=== PATIENT | female | born 2005 | race Two or more races ===

== ENCOUNTER 2024-12-03 05:43 | Emergency (ER) | payer MEDICAID, SELFPAY ==
[2024-12-03 05:44] VITALS: BMI 13.9
[2024-12-03 05:49] VITALS: BP 106/74; PULSE 86; RESP 18; TEMP 36.7; O2SAT 97
--- NOTE | 2024-12-03 06:18 | EDNOTE_ITS ---
ED Fever RME/HPI General Chief Complaint: Fever Stated Complaint: FEVER AND CRAMPING LEFT ARM AFTER VACCINES Time Seen by Provider: 12/03/24 06:11 Arrival date/time: 12/03/24 05:43 19-year-old female presents to the emergency department today stating that she got 3 vaccinations yesterday tetanus, HPV, meningococcal vaccine patient reports pain in her left arm at the site of injection. Patient reports that she had a fever last night. Patient reports no headache dizziness or weakness no neck pain no chest pain or shortness of breath Limitations: no limitations Related Data Home Medications ?Medication ?Instructions ?Recorded ?Confirmed albuterol sulfate 90 mcg/actuation 2 puff inhalation Q 6H 10/05/17 10/05/17 aerosol inhaler Previous Rx's ?Medication ?Instructions ?Recorded lidocaine HCl 2 % mucosal solution See Rx Instructions .Route 10/05/17 (Lidocaine Viscous) .COMPLEX #100 mL nitrofurantoin macrocrystal 100 mg 100 mg PO BID #14 c aps 10/31/22 capsule acetaminophen 325 mg capsule 650 mg (2 x 325 mg) PO Q8 HR PRN 12/03/24 fever or pain #30 caps ibuprofen 400 mg tablet 400 mg PO Q8H PRN fever or p ain 12/03/24 #30 tabs Allergies Allergy/AdvReac Type Severity Reaction Status Date / Time No Known Allergies Allergy Verified 12/03/24 05:44 Review of Systems Review of Systems Systems Reviewed: All systems reviewed, normal except as documented Constitutional Constitutional: Reports system reviewed and no additional complaints, except as documented, Reports body ache(s), Reports fever(s) and Denies headache(s) Eyes Eyes: Reports system reviewed and no additional complaints, except as documented and Denies blurry vision ENT Ears, Nose, Mouth, and Throat: Reports system reviewed and no additional complaints, except as documented, Denies headache(s), Denies nasal congestion and Denies nasal discharge Cardiovascular Cardiovascular: Reports system reviewed and no additional complaints, except as documented, Denies chest pain and Denies dyspnea Respiratory Respiratory: Reports system reviewed and no additional complaints, except as documented, Denies chest congestion, Denies cough and Denies dyspnea Gastrointestinal Gastrointestinal: Reports system reviewed and no additional complaints, except as documented and Denies abdominal pain Musculoskeletal Musculoskeletal: Reports system reviewed and no additional complaints, except as documented and Reports other (Left arm pain) Integumentary/Breasts Skin/Breast: Reports system reviewed and no additional complaints, except as documented and Denies rash Neurologic Neurologic: Reports system reviewed and no additional complaints, except as documented, Reports as per HPI and Denies headache(s) Past Medical History Past Medical History CARDIAC: Negative Congestive Heart Failure RESPIRATORY: Positive Asthma; Negative Chronic Obstructive Pulmonary Disease (COPD) GENITOURINARY: Negative Renal Disease ENDOCRINE: Negative Diabetes Mellitus Type 1 or Diabetes Mellitus Type 2 Social History SMOKING STATUS: Never smoker Physical Exam General Limitations: no limitations General appearance: alert and in no apparent distress Head Head exam: atraumatic, normocephalic and normal inspection Eye Eye exam: Present normal appearance, PERRL and EOMI; Absent scleral icterus, conjunctival injection, nystagmus or miosis ENT ENT exam: Present normal exam, normal oropharynx and mucous membranes moist Neck Neck exam: Present normal inspection, full ROM, trachea midline and other (Full range of motion the neck); Absent tenderness, meningismus, lymphadenopathy or thyromegaly Chest Chest inspection: Present normal inspection and symmetric chest wall rise Respiratory Respiratory exam: Present normal lung sounds bilaterally Cardiovascular Cardiovascular exam: Present regular rate, normal rhythm and normal heart sounds Abdominal Exam Abdominal exam: Present soft and normal bowel sounds Extremities Exam Extremities exam: Present normal inspection, full ROM and tenderness (Left arm pain) Back Exam Back exam: Present normal inspection and full ROM Neurological Exam Neurological exam: Present alert, oriented X3, CN II-XII intact, normal gait, reflexes normal and other (Normal neurological exam); Absent motor sensory deficit Psychiatric Psychiatric exam: Present normal affect and normal mood Skin Skin exam: Present warm, dry, intact and normal color ED Exam General Limitations: Present no limitations General appearance: Present alert and in no apparent distress Head Head exam: Present atraumatic, normocephalic and normal inspection Eye Eye exam: Present normal appearance, PERRL and EOMI; Absent scleral icterus, conjunctival injection, nystagmus or miosis ENT ENT exam: Present normal exam, normal oropharynx and mucous membranes moist Neck Neck exam: Present normal inspection, full ROM, trachea midline and other (Full range of motion the neck); Absent tenderness, meningismus, lymphadenopathy or thyromegaly Chest Chest inspection: Present normal inspection and symmetric chest wall rise Respiratory Respiratory exam: Present normal lung sounds bilaterally Cardiovascular Cardiovascular exam: Present regular rate, normal rhythm and normal heart sounds Abdominal Exam Abdominal exam: Present soft and normal bowel sounds Extremities Exam Extremities exam: Present normal inspection, full ROM and tenderness (Left arm pain) Back Exam Back exam: Present normal inspection and full ROM Neurological Exam Neurological exam: Present alert, oriented X3, CN II-XII intact, normal gait, reflexes normal and other (Normal neurological exam); Absent motor sensory deficit Psychiatric Psychiatric exam: Present normal affect and normal mood Skin Skin exam: Present warm, dry, intact and normal color Course Quality Measures none Vital Signs Vital signs: Vital Signs Temperature 98.1 F 12/03/24 05:49 Pulse Rate 86 12/03/24 05:49 Respiratory Rate 18 12/03/24 05:49 Blood Pressure 106/74 12/03/24 05:49 Pulse Oximetry (%) 97 12/03/24 05:49 Oxygen Delivery Method Room Air 12/03/24 05:49 O2 saturation 97% room air within normal limits Fever MDM Narrative MDM Narrative:: 19-year-old female presents to the emergency department today stating that she got 3 vaccinations yesterday tetanus, HPV, meningococcal vaccine patient reports pain in her left arm at the site of injection. Patient reports that she had a fever last night. Patient reports no headache dizziness or weakness no neck pain no chest pain or shortness of breath Clinically patient well-appearing patient does not appear ill or toxic patient has tenderness of the left shoulder/deltoid region but is able to move her arm albeit with pain Patient has full range of motion of her neck afebrile nontoxic in appearance Most likely this is a reaction to the vaccination explained to the patient if she develops any worsening symptoms she needs to return for reevaluation patient states understanding Patient discharged home in no distress to follow-up with primary care doctor in the next 24 to 48 hours and for any worsening symptoms to return to the ER immediately Patient data External records reviewed:: [facility] previous records Clinical information provided by:: patient Social determinants that could affect healthcare access:: none Patient has the following chronic illnesses:: None How is presenting disease/condition affected by chronic disease/condition?: no chronic disease Evaluation data The following diagnostics were reviewed and interpreted by me:: other (specify) Lab and/or radiology exams considered but not ordered:: Considered not ordered Interpretation Summary: N/A Medications / Prescriptions Medications or Prescriptions considered but not ordered:: Given Medication administrations:: Given Consultations Consultation(s) initiated? (list below): No Diagnosis Fever Differential Diagnosis: fever of unknown origin and other Most likely diagnosis given after review of the tests above:: Vaccine reaction Admission Indicated Admission indicated?: not indicated Admission Request Was there a request for admission?: No Disposition Plan Disposition Plan: Discharge Discharge Attestation Discharge Attestation: The patient and all family members were given an opportunity to ask questions and understood the discharge instructions. Discharge instructions specifically effects, indications for sooner follow up or return to the emergency department, and the expected course of current diagnosis. Patient condition: Stable Discharge Plan Plan Patient Disposition: HOME (Self Care) Disposition Comment: Stable Prescriptions/Referrals Prescriptions/Med Rec: New acetaminophen 325 mg capsule 650 mg PO Q8HR PRN (Reason: fever or pain) Qty: 30 0RF ibuprofen 400 mg tablet 400 mg PO Q8H PRN (Reason: fever or pain) Qty: 30 0RF No Action albuterol sulfate 90 mcg/actuation Hfa Aerosol Inhaler 2 puff INHALATION Q6H lidocaine HCl [Lidocaine Viscous] 2 % solution See Rx Instructions .ROUTE .COMPLEX Qty: 100 0RF Rx Instructions: 1 mL by mouth 10 minutes before eating 3 times daily as needed nitrofurantoin macrocrystal 100 mg capsule 100 mg PO BID Qty: 14 0RF Rx Instructions: must administer with a meal/food Problem List Clinical Impression: Vaccine reaction, Fever Patient/Caregiver Discharge Instructions Education Materials: ED Drug Reaction, Other Additional Instructions: Please follow up with your primary care doctor in the next 24-48hrs for any worsening symptoms return here immediately Print Language: Wallisian Stand Alone Forms: Pia Award Info., Patient Portal Info Letter PA/ZULY Supervising Physician BRAVO/ZULY Supervising Physician: Dr Noland
== END 2024-12-03 06:38 | disposition home or self-care (01) ==
LOC: SERX 06:28
PROVIDERS: Emergency Provider Emergency Medicine; PCP Physician Assistant
DX: R50.83 Postvaccination fever (principal); R25.2 Cramp and spasm; T50.A95A Adverse effect of other bacterial vaccines, initial encounter; T50.B95A Adverse effect of other viral vaccines, initial encounter
CPT/HCPCS: 99281

== ENCOUNTER 2025-06-13 12:34 | Emergency (ER) | payer MEDICAID, SELFPAY ==
[2025-06-13 13:05] VITALS: BP 113/75; PULSE 68; RESP 16; TEMP 36.7; O2SAT 98; BMI 20.9
--- NOTE | 2025-06-13 13:16 | XR_ITS ---
Examination: Complete OB ultrasound, less than 14 weeks, transabdominal Date and time of exam: June 13, 2025, 1322 hours INDICATIONS: Vaginal bleeding and pelvic pain beginning 2 days ago. Technique: Obstetrical ultrasound images less than 14 weeks performed via transabdominal imaging Findings: A normal shaped single intrauterine gestation is present in the uterus. Uterus 7.4 cm CRL 0.4 cm corresponds to 6 weeks 1 day gestational age Cardiac motion 141 bpm Ultrasonographic survey of visible and placental structures unremarkable. Amniotic fluid volume appears appropriate for this estimated gestational age. Right ovary 2.5 cm arterial flow. Left ovary 3.7 cm arterial flow IMPRESSION: Viable intrauterine gestation 6 weeks 1 day
--- NOTE | 2025-06-13 13:18 | EDNOTE_ITS ---
ED OB Contraction Preg RMI/HPI General Chief complaint: OB/Uterine Contractions Stated complaint: VOMITING, DIZZY, R) ABD CRAMPING, PREG 6WKS Time Seen by Provider: 06/13/25 12:59 Source: patient Arrival date/time: 06/13/25 12:34 20-year-old female with no known medical history presents to the emergency room with a chief complaint of right abdominal cramping, vomiting, dizziness x 2 days. Patient is currently 6 weeks . She is a G1, P0. Patient denies any vaginal bleeding. Mode of arrival: ambulatory Limitations: no limitations Related Data Home Medications ?Medication ?Instructions ?Recorded ?Confirmed albuterol sulfate 90 mcg/actuation 2 puff inhalation Q 6H 10/05/17 10/05/17 aerosol inhaler Previous Rx's ?Medication ?Instructions ?Recorded lidocaine HCl 2 % mucosal solution See Rx Instructions .Route 10/05/17 (Lidocaine Viscous) .COMPLEX #100 mL nitrofurantoin macrocrystal 100 mg 100 mg PO BID #14 c aps 10/31/22 capsule acetaminophen 325 mg capsule 650 mg (2 x 325 mg) PO Q8 HR PRN 12/03/24 fever or pain #30 caps ibuprofen 400 mg tablet 400 mg PO Q8H PRN fever or p ain 12/03/24 #30 tabs ondansetron 4 mg disintegrating 4 mg PO Q8H PRN nausea and 06/13/25 tablet vomiting #14 tabs Allergies Allergy/AdvReac Type Severity Reaction Status Date / Time No Known Allergies Allergy Verified 06/13/25 12:37 Review of Systems Review of Systems Systems Reviewed: All systems reviewed, normal except as documented Constitutional Constitutional: Reports system reviewed and no additional complaints, except as documented, Denies fatigue, Denies fever(s), Denies headache(s) and Denies weakness Eyes Eyes: Reports system reviewed and no additional complaints, except as d ocumented, Denies blurry vision and Denies change in vision ENT Ears, Nose, Mouth, and Throat: Reports system reviewed and no additional complaints, except as documented, Denies otalgia, Denies headache(s), Denies nasal congestion, Denies throat swelling and Denies vertigo Cardiovascular Cardiovascular: Reports system reviewed and no additional complaints, except as documented, Denies chest pain, Denies dyspnea and Denies dyspnea on exertion Respiratory Respiratory: Reports system reviewed and no additional complaints, except as documented, Denies chest congestion, Denies cough, Denies dyspnea, Denies dyspnea on exertion and Denies wheezing Gastrointestinal Gastrointestinal: Reports system reviewed and no additional complaints, except as documented, Denies abdominal pain, Denies cramping, Denies nausea and Denies vomiting Genitourinary Genitourinary: Reports system reviewed and no additional complaints, except as documented, Reports abnormal vaginal bleeding and Reports pelvic pain Musculoskeletal Musculoskeletal: Reports system reviewed and no additional complaints, except as documented and Denies back pain Integumentary/Breasts Skin/Breast: Reports system reviewed and no additional complaints, except as documented and Denies wounds Neurologic Neurologic: Reports system reviewed and no additional complaints, except as documented, Denies confusion, Denies headache(s), Denies lack of coordination, Denies vertigo and Denies weakness Psychiatric Psychiatric: Reports system reviewed and no additional complaints, except as documented, Denies anxiety, Denies confusion, Denies depression, Denies paranoia, Denies suicidal ideation and Denies tactile hallucinations Endocrine Endocrine: Reports system reviewed and no additional complaints, except as documented and Denies fatigue Hematologic/Lymphatic Hematologic/Lymphatic: Reports system reviewed and no additional complaints, except as documented and Denies lymphadenopathy Allergic/Immunologic Allergic/Immunologic: Reports system reviewed and no additional complaints, except as documented, Denies throat swelling, Denies urticaria and Denies wheezing Past Medical History Past Medical History CARDIAC: Negative Congestive Heart Failure RESPIRATORY: Positive Asthma; Negative Chronic Obstructive Pulmonary Disease (COPD) GENITOURINARY: Negative Renal Disease ENDOCRINE: Negative Diabetes Mellitus Type 1 or Diabetes Mellitus Type 2 Social History SMOKING STATUS: Never smoker ED Exam General Limitations: Present no limitations General appearance: Present alert and in no apparent distress Head Head exam: Present atraumatic Eye Eye exam: Present normal appearance, PERRL and EOMI ENT ENT exam: Present normal exam, normal oropharynx and mucous membranes moist Neck Neck exam: Present normal inspection, full ROM and trachea midline Chest Chest inspection: Present normal inspection and symmetric chest wall rise Respiratory Respiratory exam: Present normal lung sounds bilaterally Cardiovascular Cardiovascular exam: Present regular rate, normal rhythm and normal heart sounds Abdominal Exam Abdominal exam: Present soft and normal bowel sounds Extremities Exam Extremities exam: Present normal inspection and full ROM Back Exam Back exam: Present normal inspection and full ROM Neurological Exam Neurological exam: Present alert, oriented X3 and CN II-XII intact Psychiatric Psychiatric exam: Present normal affect and normal mood Skin Skin exam: Present warm, dry, intact and normal color Course Quality Measures none Orders Category Date Time Status US OB <= 14 weeks fetus Stat Exams 06/13/25 13:16 Completed ABO/RH Type Stat Lab 06/13/25 14:20 Completed Beta HCG,Quantitative Stat Lab 06/13/25 14:20 Completed CBC Stat Lab 06/13/25 14:20 Completed CMP [Comprehensive Metabolic Panel] Stat Lab 06/13/25 14:20 Completed UA [Urinalysis] Stat Lab 06/13/25 14:05 Completed Ondansetron Odt [Zofran Odt] Med 06/13/25 13:19 Discontinued 4 mg PO X1 ONE Vital Signs Vital signs: Vital Signs Temperature 98.1 F 06/13/25 13:05 Pulse Rate 68 06/13/25 13:05 Respiratory Rate 16 06/13/25 13:05 Blood Pressure 113/75 06/13/25 13:05 Pulse Oximetry (%) 98 06/13/25 13:05 Oxygen Delivery Method Room Air 06/13/25 13:05 OB/Uterine Contractions MDM Narrative MDM Narrative:: 20-year-old female with no known medical history presents to the emergency room with a chief complaint of right abdominal cramping, vomiting, dizziness x 2 days. Patient is currently 6 weeks . She is a G1, P0. Patient denies any vaginal bleeding. Patient is hemodynamically stable and in no apparent distress Physical examination shows a soft nontender abdomen. Ultrasound OB shows a viable intrauterine gestation at 6 weeks and 1 day. heart tones are 141 bpm. hCG levels are 126,111. There is arterial flow to the right and left ovary. Patient was discharged and educated to follow-up with primary care provider in the next 24 to 48 hours and return to the emergency room for any evidence of worsening signs or symptoms Patient data External records reviewed:: [facility] previous records Clinical information provided by:: patient Social determinants that could affect healthcare access:: none Patient has the following chronic illnesses:: No chronic illness How is presenting disease/condition affected by chronic disease/condition?: no chronic disease Evaluation data The following diagnostics were reviewed and interpreted by me:: lab results and radiology exam(s) Lab and/or radiology exams considered but not ordered:: Labs and radiology exams considered and ordered Interpretation Summary: Ultrasound OB-Findings: A normal shaped single intrauterine gestation is present in the uterus. Uterus 7.4 cm CRL 0.4 cm corresponds to 6 weeks 1 day gestational age Cardiac motion 141 bpm Ultrasonographic survey of visible and placental structures unremarkable. Amniotic fluid volume appears appropriate for this estimated gestational age. Right ovary 2.5 cm arterial flow. Left ovary 3.7 cm arterial flow IMPRESSION: Viable intrauterine gestation 6 weeks 1 day Medications / Prescriptions Medications or Prescriptions considered but not ordered:: No medication given Medication administrations:: Medication Administration History Discontinued Medications Ondansetron HCl (Ondansetron Odt 4 Mg Tabrap) 4 mg PO X1 ONE; Protocol Stop: 06/13/25 13:20 Last Admin: 06/13/25 13:59 Dose: 4 mg Documented By: OA No medication given Consultations Consultation(s) initiated? (list below): No Diagnosis OB Contractions Differential Diagnosis: other (Ectopic /UTI/threatened /ovarian torsion/abdominal cramping while ) Most likely diagnosis given after review of the tests above:: Abdominal cramping while Admission Indicated Admission indicated?: not indicated Explain why admission is indicated or not indicated:: N/A Admission Request Was there a request for admission?: No Disposition Plan Disposition Plan: Discharge Discharge Attestation Discharge Attestation: The patient and all family members were given an opportunity to ask questions and understood the discharge instructions. Discharge instructions specifically effects, indications for sooner follow up or return to the emergency department, and the expected course of current diagnosis. Patient condition: Stable Discharge Plan Plan Patient Disposition: HOME (Self Care) Discharge Disposition comment: Stable Prescriptions/Referrals Prescriptions/Med Rec: New ondansetron 4 mg tablet,disintegrating 4 mg PO Q8H PRN (Reason: nausea and vomiting) Qty: 14 0RF No Action albuterol sulfate 90 mcg/actuation Hfa Aerosol Inhaler 2 puff INHALATION Q6H lidocaine HCl [Lidocaine Viscous] 2 % solution See Rx Instructions .ROUTE .COMPLEX Qty: 100 0RF Rx Instructions: 1 mL by mouth 10 minutes before eating 3 times daily as needed nitrofurantoin macrocrystal 100 mg capsule 100 mg PO BID Qty: 14 0RF Rx Instructions: must administer with a meal/food acetaminophen 325 mg capsule 650 mg PO Q8HR PRN (Reason: fever or pain) Qty: 30 0RF ibuprofen 400 mg tablet 400 mg PO Q8H PRN (Reason: fever or pain) Qty: 30 0RF Referrals: Nile Bañuelos MD [Primary Care Provider, Family Practice] - In 1 week Problem List Clinical Impression: Abdominal cramping affecting Patient/Caregiver Discharge Instructions Education Materials: Abdominal Pain Additional Instructions: Please follow-up with your P[facility]IC[facility] SPECIALIST in the next 24 to 48 hours Your ultrasound shows a in good standing at 6 weeks and 1 day. heart tones are 141 bpm. hCG levels are 126,111 For any evidence of worsening signs or symptoms return to emergency room immediately Print Language: Mauritian Stand Alone Forms: Pia Award Info., Work/School Release, Patient Portal Info Letter
[2025-06-13] MEDS: ONDANSETRON ODT 4 MG TABRAP PO (13:59)
[2025-06-13 14:29] LABS: Collection Type, Urine Clean Catch
--- NOTE | 2025-06-13 14:33 | PC.NURSE ---
PT TRYING TO GIVE URINE SPECIMEN WHEN ASKED.
[2025-06-13 14:37] LABS: Basophils # (Auto) 0.1 Thou/mm3 (0.0-0.2); Basophils % (Auto) 0 % (0-2.5); Eosinophils # (Auto) 0.1 Thou/mm3 (0.0-0.5); Eosinophils % (Auto) 1 % (0-10); Hematocrit 38.5 % (36.0-46.0); Hemoglobin 13.4 g/dL (12.0-16.0); Immature Granulocytes Auto 0.06 Thou/mm3 (0.00-0.00); Lymphocytes # (Auto) 1.9 Thou/mm3 (1.0-4.8); Lymphocytes % (Auto) 14 % (10-50); Mean Corpuscular HGB Conc 34.8 g/dl (31.0-37.0); Mean Corpuscular Hemoglobin 29.2 pg (25.0-35.0); Mean Corpuscular Volume 84 fL (80-100); Monocytes # (Auto) 0.8 Thou/mm3 (0.0-0.8); Monocytes % (Auto) 6 % (0-12); Neutrophils # (Auto) 10.9 Thou/mm3 (1.8-7.7); Neutrophils % (Auto) 79 % (37-80); Nucleated Red Blood Cell # 0.00 Thou/mm3 (0.00-0.00); Nucleated Red Blood Cell % 0 /100 WBC (0); Platelet Count 250 Thou/mm3 (140-440); RDW Standard Deviation 41.1 fL (36.4-46.3); Red Blood Count 4.59 Miln/mm3 (4.00-5.20); White Blood Count 13.8 Thou/mm3 (3.6-11.0)
[2025-06-13 14:56] LABS: Bacteria,Urine Rare; Bilirubin,Urine Negative (Negative); Blood,Urine Negative (Negative); Clarity,Urine Clear (Clear/Hazy); Color,Urine Yellow (Lt Yel-Yel); Glucose, Urine Negative (Negative); Ketones,Urine 4+ (Negative); Leukocyte Esterase,Urine Negative (Negative); Nitrite,Urine Negative (Negative); PH,Urine 6.5 (5.0-7.0); Protein,Urine Trace (Neg - Trace); RBC,Urine 3 /hpf (0-3); Specific Gravity,Urine 1.028 (1.001-1.035); Squamous Epithelial Cell,Urine 3 /hpf (0-5); Urobilinogen,Urine Negative mg/dL (0.0-1.0); WBC,Urine 1 /hpf (0-5)
[2025-06-13 14:57] LABS: Alanine Aminotransferase 11 U/L (10-49); Albumin, Serum 5.0 gm/dL (3.5-5.0); Albumin/Globulin Ratio 2.3 (1.2-2.2); Alkaline Phosphatase 44 U/L (46-116); Anion Gap 11 (7-16); Aspartate Amino Transferase 21 U/L (0-34); BUN/Creatinine Ratio 9 Ratio (12-20); Bilirubin,Total 0.7 mg/dL (0.3-1.2); Blood Urea Nitrogen 6 mg/dL (9-23); Calcium 9.4 mg/dL (8.3-10.6); Calcium (Corrected) 9.4 mg/dL (8.5-10.1); Carbon Dioxide 23.1 mMol/L (20.0-31.0); Chloride 103 mMol/L (98-107); Creatinine (Component) 0.7 mg/dL (0.6-1.3); Estimated Creatinine Clearance 82.1 mL/min (>60); Globulin 2.2 gm/dL (2.3-3.5); Glucose 118 mg/dL (74-106); Osmolality,Calculated 272 (275-295); Potassium 3.9 mMol/L (3.4-5.1); Sodium 137 mMol/L (136-145); Total Protein 7.2 gm/dL (5.7-8.2); eGFR > 60 See Note
== END 2025-06-13 16:24 | disposition home or self-care (01) ==
PROVIDERS: Emergency Provider Nurse Practitioner Family; PCP Family Medicine
DX: O21.9 Vomiting of pregnancy, unspecified (principal); Z3A.01 Less than 8 weeks gestation of pregnancy
CPT/HCPCS: 36415; 76801; 80053; 81001; 84702; 85025; 86900; 86901; 99282; Q0162